=== PATIENT | female | born 1955 | race Caucasian/White ===

== ENCOUNTER 2019-05-30 10:29 | Emergency (ER) | payer SELFPAY ==
[~2019-05-30] VITALS: Ht 167.6 cm; Wt 55.8 kg
[2019-05-30] MEDS ORDERED: CITA20 PO ×2 (10:42→10:51)
[2019-05-30] MEDS ORDERED: Mupirocin22 GM TOP (10:51)
[2019-05-31] MEDS ORDERED: Ofloxacin5 M1 BOTHEARS (15:06)
== END 2019-05-30 10:55 | disposition home or self-care (01) ==
LOC: ER 10:29
DX: H61.22 Impacted cerumen, left ear (principal); S61.451D Open bite of right hand, subsequent encounter; W54.0XXD Bitten by dog, subsequent encounter; Z76.0 Encounter for issue of repeat prescription; Z88.1 Allergy status to other antibiotic agents; Z79.899 Other long term (current) drug therapy; I10 Essential (primary) hypertension; F41.9 Anxiety disorder, unspecified
CPT/HCPCS: 99281

== ENCOUNTER 2019-05-31 12:57 | Emergency (ER) | payer SELFPAY ==
[~2019-05-31] VITALS: Ht 170.2 cm; Wt 55.8 kg
[~2019-05-31 12:57] MED LIST: CITA20 PO; Mupirocin22 GM TOP
[2019-05-31] MEDS ORDERED: Ofloxacin5 M1 BOTHEARS (15:06)
== END 2019-05-31 15:40 | disposition home or self-care (01) ==
LOC: ER 12:57
DX: H61.23 Impacted cerumen, bilateral (principal); H60.90 Unspecified otitis externa, unspecified ear; Z88.1 Allergy status to other antibiotic agents; Z79.899 Other long term (current) drug therapy; I10 Essential (primary) hypertension; F41.9 Anxiety disorder, unspecified
CPT/HCPCS: 99282

== ENCOUNTER → 2019-09-27 | Outpatient (CLI) | payer MEDICARE ==
[~2019-09-27] MED LIST changes: +Ofloxacin5 M1 BOTHEARS
[2019-09-27 15:31] LABS: Source, Urine Clean Catch
[2019-09-27 18:35] LABS: Appearance, Urine Clear (Clear); Bilirubin, Urine Neg (Neg); Blood, Urine Neg (Neg); Color, Urine Yellow (P-Yellow); Glucose Qualitative, Urine Neg (Neg); Ketones, Urine Neg (Neg); Leukocyte Esterase, Urine Neg (Neg); Nitrite, Urine Neg (Neg); Protein, Urine Neg (Neg); Specific Gravity, Urine 1.005 (1.003-1.022); Urobilinogen, Urine NORM (Normal)
== END | disposition home or self-care (01) ==
LOC: LAB SHORT 15:28 → LAB 15:28
PROVIDERS: Nurse Practitioner Family
DX: R50.9 Fever, unspecified (principal)
CPT/HCPCS: 81003

== ENCOUNTER → 2020-01-03 | Outpatient (CLI) | payer MEDICARE, OTHER ==
[2020-01-03 09:26] LABS: BASOPHILS ABSOLUTE AUTO 0.02 K/mm3 (0.00-0.23); BASOPHILS PERCENT AUTO 1 % (0-2); EOSINOPHILS ABSOLUTE AUTO 0.03 K/mm3 (0.00-0.68); EOSINOPHILS PERCENT AUTO 1 % (0-6); Hematocrit 39.8 % (33.0-51.0); Hemoglobin 13.8 g/dL (11.5-16.0); IMMATURE GRAN ABSOLUTE AUTO 0.01 K/mm3 (0.00-0.10); IMMATURE GRAN PERCENT AUTO 0 % (0-1); LYMPHOCYTES ABSOLUTE AUTO 1.42 K/mm3 (0.84-5.20); LYMPHOCYTES PERCENT AUTO 39 % (21-46); MONOCYTES PERCENT AUTO 17 % (4-13); Mean Corpuscular HGB 32.2 pg (26.0-34.0); Mean Corpuscular HGB Conc 34.7 g/dL (31.5-36.5); Mean Corpuscular Volume 93 fL (80-100); Mean Platelet Volume 8.2 fL (9.1-12.4); NEUTROPHILS ABSOLUTE AUTO 1.55 K/mm3 (1.96-9.15); NEUTROPHILS PERCENT AUTO 43 % (41-73); Platelet Count 271 K/mm3 (150-400); RDW Coefficient Variation 12.5 % (11.7-14.2); RDW Standard Deviation 42.7 fL (35.1-46.3); Red Blood Cell Count 4.29 M/mm3 (3.80-5.20); White Blood Cell Count 3.63 K/mm3 (4.00-11.30)
[2020-01-03 09:45] LABS: Alanine Aminotransfer (ALT/SGP 20 U/L (12-78); Albumin, Blood 3.8 g/dL (3.4-5.0); Albumin/Globulin Ratio 0.9 (0.8-1.8); Alk Phos 101 U/L (40-126); Anion Gap 9 mmol/L (6-16); Aspartate Aminotrans (AST/SGOT 19 U/L (12-37); Bilirubin, Total 0.3 mg/dL (0.1-1.0); Blood Urea Nitrogen 9 mg/dL (8-24); Bun/Creatinine Ratio 15.8 (12.0-20.0); CO2, Blood 27 mmol/L (21-32); Calcium, Blood 8.8 mg/dL (8.5-10.1); Chloride, Blood 96 mmol/L (98-108); Creatinine, Blood 0.57 mg/dL (0.40-1.00); Globulin, Blood 4.1 g/dL (2.2-4.0); Glomerular Filtration Rate >60 (60-); Glucose, Blood 95 mg/dL (70-99); Potassium, Blood 3.7 mmol/L (3.5-5.5); Sodium, Blood 132 mmol/L (136-145); Thyroid Stimulating Hormone 2.252 uIU/mL (0.360-4.800); Total Protein, Blood 7.9 g/dL (6.4-8.2)
== END ==
LOC: LAB SHORT 09:22 → LAB EV 09:22
PROVIDERS: Physician Assistant Medical
DX: R06.00 Dyspnea, unspecified (principal)
CPT/HCPCS: 80053; 84443; 85025

== ENCOUNTER → 2020-04-03 | Outpatient (CLI) | payer MEDICARE, OTHER | END | disposition home or self-care (01) | LOC: LAB 09:30 → LAB SHORT 09:30 → LAB FUT 01-16 15:05 | DX: K21.9 Gastro-esophageal reflux disease without esophagitis (principal) | CPT/HCPCS: 87338 ==

== ENCOUNTER 2020-07-16 12:16 | Emergency (ER) | payer MEDICARE, OTHER ==
[~2020-07-16] VITALS: Ht 167.6 cm; Wt 77.1 kg
[2020-07-16 13:25] LABS: Source, Urine Clean Catch
[2020-07-16 13:31] LABS: Bilirubin, Urine Neg (Neg); Blood, Urine Neg (Neg); Glucose Qualitative, Urine Neg (Neg); Ketones, Urine Neg (Neg); Leukocyte Esterase, Urine Neg (Neg); Nitrite, Urine Neg (Neg); Protein, Urine Neg (Neg); Urobilinogen, Urine NORM (Normal)
[2020-07-16 13:53] LABS: Appearance, Urine Clear (Clear); Color, Urine Yellow (P-Yellow)
[2020-07-16] MEDS ORDERED: IBUP600 PO (15:18)
[2020-07-16] MEDS ORDERED: LIDO700A20 TOP (15:18)
[2020-07-16] MEDS ORDERED: Valium5 MG PO (15:18)
[2020-07-16] MEDS ORDERED: ACETAMINOPHEN500 MG PO (15:18)
[2020-07-16] MEDS ORDERED: CYCL10 PO (15:19)
== END 2020-07-16 15:24 | disposition home or self-care (01) ==
LOC: ER 12:16
PROVIDERS: Physician Assistant
DX: M62.830 Muscle spasm of back (principal); G89.29 Other chronic pain; F41.9 Anxiety disorder, unspecified; Z88.1 Allergy status to other antibiotic agents; Z79.899 Other long term (current) drug therapy
CPT/HCPCS: 51798; 81003; 99283-25

== ENCOUNTER 2020-10-16 11:21 | Emergency (ER) | payer MEDICARE, OTHER ==
[~2020-10-16] VITALS: Ht 165.1 cm; Wt 49.0 kg
[~2020-10-16 11:21] MED LIST changes: +ACETAMINOPHEN500 MG PO; +CYCL10 PO; +IBUP600 PO; +LIDO700A20 TOP; +Valium5 MG PO
[2020-10-16 11:56] LABS: BASOPHILS ABSOLUTE AUTO 0.03 K/mm3 (0.00-0.23); BASOPHILS PERCENT AUTO 1 % (0-2); EOSINOPHILS ABSOLUTE AUTO 0.05 K/mm3 (0.00-0.68); EOSINOPHILS PERCENT AUTO 1 % (0-6); Hematocrit 39.6 % (33.0-51.0); Hemoglobin 13.5 g/dL (11.5-16.0); IMMATURE GRAN ABSOLUTE AUTO 0.01 K/mm3 (0.00-0.10); IMMATURE GRAN PERCENT AUTO 0 % (0-1); LYMPHOCYTES ABSOLUTE AUTO 0.76 K/mm3 (0.84-5.20); LYMPHOCYTES PERCENT AUTO 16 % (21-46); MONOCYTES ABSOLUTE AUTO 0.75 K/mm3 (0.16-1.47); MONOCYTES PERCENT AUTO 16 % (4-13); Mean Corpuscular HGB 31.9 pg (26.0-34.0); Mean Corpuscular HGB Conc 34.1 g/dL (31.5-36.5); Mean Corpuscular Volume 94 fL (80-100); NEUTROPHILS ABSOLUTE AUTO 3.07 K/mm3 (1.96-9.15); NEUTROPHILS PERCENT AUTO 66 % (41-73); Platelet Count 334 K/mm3 (150-400); RDW Coefficient Variation 11.4 % (11.7-14.2); RDW Standard Deviation 39.2 fL (35.1-46.3); Red Blood Cell Count 4.23 M/mm3 (3.80-5.20); White Blood Cell Count 4.67 K/mm3 (4.00-11.30)
[2020-10-16 12:16] LABS: Troponin I <0.015 ng/mL (0.000-0.040)
[2020-10-16] MEDS ORDERED: FOSAMAX70 MG PO (12:16)
[2020-10-16 12:17] LABS: Alanine Aminotransfer (ALT/SGP 21 U/L (12-78); Albumin, Blood 4.1 g/dL (3.4-5.0); Albumin/Globulin Ratio 1.2 (0.8-1.8); Alk Phos 131 U/L (50-136); Anion Gap 8 mmol/L (6-16); Aspartate Aminotrans (AST/SGOT 17 U/L (12-37); Bilirubin, Total 0.6 mg/dL (0.1-1.0); Blood Urea Nitrogen 7 mg/dL (8-24); CO2, Blood 27 mmol/L (21-32); Calcium, Blood 8.9 mg/dL (8.5-10.1); Chloride, Blood 94 mmol/L (98-108); Creatinine, Blood 0.44 mg/dL (0.40-1.00); Globulin, Blood 3.4 g/dL (2.2-4.0); Glomerular Filtration Rate >60 (60-); Glucose, Blood 106 mg/dL (70-99); Potassium, Blood 3.8 mmol/L (3.5-5.5); Sodium, Blood 129 mmol/L (136-145); Total Protein, Blood 7.5 g/dL (6.4-8.2)
== END 2020-10-16 16:06 | disposition home or self-care (01) ==
LOC: ER 11:21
PROVIDERS: Emergency Medicine
DX: R07.9 Chest pain, unspecified (principal); R42 Dizziness and giddiness; I10 Essential (primary) hypertension; Z79.899 Other long term (current) drug therapy; Z88.1 Allergy status to other antibiotic agents; Z88.8 Allergy status to other drugs, medicaments and biological substances
CPT/HCPCS: 36415; 71046; 80053; 84484; 85025; 93005; 93010; 93971; 96360; 96361; 99285-25; J7030

== ENCOUNTER → 2020-11-09 | Outpatient (CLI) | payer MEDICARE, OTHER ==
[~2020-11-09] MED LIST changes: +FOSAMAX70 MG PO
== END | disposition home or self-care (01) ==
LOC: LAB SHORT 15:11 → LAB 15:11
DX: Z01.812 Encounter for preprocedural laboratory examination (principal); Z20.822 Contact with and (suspected) exposure to COVID-19
CPT/HCPCS: U0003

== ENCOUNTER → 2020-11-28 | Outpatient (CLI) | payer MEDICARE, OTHER | LOC: LAB SHORT 12:50 → PLD 12:50 | DX: R35.8 Other polyuria (principal) | CPT/HCPCS: 87086 ==

== ENCOUNTER → 2023-05-26 | Outpatient (CLI) | payer MEDICARE, OTHER | END | disposition home or self-care (01) | LOC: LAB SHORT 13:06 → LAB 13:06 | DX: R39.15 Urgency of urination (principal) | CPT/HCPCS: 87086 ==

== ENCOUNTER 2024-02-16 09:03 | Day surgery (SDC) | payer MEDICARE, OTHER ==
[~2024-02-16] VITALS: Ht 167.6 cm; Wt 51.3 kg
[2024-02-16] VITALS (25 sets, daily range): BP systolic 126–193; BP diastolic 73–133
[~2024-02-16 09:03] MED LIST changes: +ESOM20 PO; +GABA300 PO; +Lactated Ringer's 1,000 ML IV SCH; +METO25ER PO; +PROZAC40 MG PO
[2024-02-16] MEDS ORDERED: Benzocaine Oral Spray 0.5ML UD ONE (09:56)
[2024-02-16] MEDS ORDERED: propofoL 60 ML IV ONE (09:56)
--- NOTE | 2024-02-16 10:20 | NUR ---
02/16/24 1020 Pepe Cervantes HISTORY, CHART, MEDICATIONS AND ALLERGIES REVIEWED BEFORE START OF PROCEDURE. PATIENT CONFIRMS NPO STATUS AND AGREES WITH SCHEDULED PROCEDURE. 3-LEAD EKG REVIEWED WITH PHYSICIAN PRIOR TO START OF PROCEDURE. MONITOR INTACT WITH CONTINUOUS PULSE OXIMETRY,CAPNOGRAPHY, 3-LEAD EKG, INTERMITTENT BP. SUPPLEMENTAL O2 TO BE TITRATED THROUGHOUT PROCEDURE TO MAINTAIN O2 SATURATION ABOVE 90%. PATIENT DETERMINED TO BE ASA APPROPRIATE FOR PROPOFOL SEDATION PRIOR TO START OF PROCEDURE BY
--- NOTE | 2024-02-16 10:56 | NUR ---
REPORT RECEIVED FROM OLIVER BARBOSA. VSS. PT ON RA. PT ABLE TO REPOSITION SELF IN BED. PT REQUESTING PO FLUIDS AND TOLERATING THEM WELL. PT DENIES PAIN, NAUSEA OR OTHER DISCOMFORTS.
== END 2024-02-16 22:50 | disposition home or self-care (01) ==
LOC: ORD 09:03 → ORSCMMR 09:03 → ORD 09:30
PROVIDERS: Internal Medicine Gastroenterology
PROC: 0DJ68ZZ Inspection of Stomach, Via Natural or Artificial Opening Endoscopic (ICD-10-PCS; principal; 2024-02-16 07:30)
PROC: 0DBN8ZX Excision of Sigmoid Colon, Via Natural or Artificial Opening Endoscopic, Diagnostic (ICD-10-PCS; principal; 2024-02-16 07:30)
DX: D00.1 Carcinoma in situ of esophagus (principal); R10.9 Unspecified abdominal pain; K22.70 Barrett's esophagus without dysplasia; K21.9 Gastro-esophageal reflux disease without esophagitis; K44.9 Diaphragmatic hernia without obstruction or gangrene; K63.5 Polyp of colon; I10 Essential (primary) hypertension; F32.9 Major depressive disorder, single episode, unspecified; Z79.899 Other long term (current) drug therapy
CPT/HCPCS: 88305; A9270; J2704; J7120